=== PATIENT | male | born 1960 | race Caucasian/White ===

== ENCOUNTER 2018-08-03 17:57 | Inpatient (IN) | payer OTHER ==
[~2018-08-03] VITALS: Ht 195.6 cm; Wt 136.1 kg
--- OUTSIDE RECORDS SUMMARY | 2018-08-03 17:59 | XMS REPORT | Clinical Summary ---
Author Author [facility] Address Unknown Phone Unavailable Care Team Providers Care Irish Moss Bleacher Name Role Phone Kate Spencer MD PCP Allergies Comments Active Allergy Reactions Severity Noted Date Diaphoresis, insomnia, jittery Hydrocodone-Acetaminophen Anxiety Low 07/14/2015 Morphine Sulfate GI 07/14/2015 Intolerance Medications End Date Status Medication Sig Dispensed Refills Start Date Active pantoprazole (PROTONIX) TK 1 T PO D 3 40 MG EC tablet WITH JEN- in 7 the morning Active PREVIDENT 5000 BOOSTER Apply 0 PLUS 1.1 % paste topically 3 7 (three) times a day. Active apixaban (ELIQUIS) 5 mg Take 5 mg by 0 tablet mouth. 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 Last Filed Vital Signs Not on file Plan of Treatment Health Maintenance Due Date Last Done Comments COLON CANCER SCREENING 2011 SHINGLES VACCINES (#1) 2011 INFLUENZA VACCINE 01/03/2018 Results Not on fileafter 08/02/2017 Insurance Payer Benefit Subscriber ID Type Phone Address Plan / Group [facility] UMR xxxxxxxx [facility] [employer] Guarantor Name Account Relation to Date of Phone Billing Address Type Patient Ruiz Hernandez Personal/F Self 1960 [address] (Home) [address] [place] [address] Advance Directives Patient has advance care planning documents on file. For more information, paola perry contact: Viral Prince [address] [place] [address]
--- OUTSIDE RECORDS SUMMARY | 2018-08-03 17:59 | XMS REPORT | Continuity of Care Document ---
Author Author [facility] Address Unknown Phone Unavailable Problems Problem Status Onset Date Classification Date Reported Comments Source Hammertoe of left foot Active Problem 09/30/2017 [facility] Medications Medication Details Route Status Patient Instructions Ordering Provider Order Date Source Allergies, Adverse Reactions, Alerts Substance Category Reaction Severity Reaction type Status Date Reported Comments Source Immunizations Immunization Date Given Site Status Last Updated Comments Source Results Order Name Results Value Reference Range Date Interpretation Comments Source Vital Signs Vital Sign Value Date Comments Source Encounters Location Location Details Encounter Type Encounter Number Reason For Visit Attending Provider ADM Date DC Date Status Source Procedures Procedure Code Date Perfomer Comments Source
--- OUTSIDE RECORDS SUMMARY | 2018-08-03 17:59 | XMS REPORT ---
Author [facility] eClinicalWorks Address Unknown Phone Unavailable Care Team Providers Care Recreational Therapy Aide Name Role Phone Sincere Corrales CP Unavailable Allergies No Known Allergies Problems Problem Type Condition Code Onset Dates Condition Status Problem Hammertoe of left foot M20.42 Active Medications No Known Medications Results No Known Results Summary Purpose eClinicalWorks Submission
[2018-08-03] MEDS ORDERED: SODIUM CHLORIDE 0.9% 1000ML 1,000 ML IV STA (18:43)
[2018-08-03] MEDS ORDERED: ONDANSETRON HCL INJ 2MG/ML 2ML 2 MG/ML VIAL IV ONE (19:00)
[2018-08-03] MEDS ORDERED: FAMOTIDINE 20 MG/2 ML VIAL IV ONE (19:00)
--- NOTE | 2018-08-03 19:26 | Diagnostic Imaging Report ---
EXAMINATION: CHEST SINGLE (PORTABLE) INDICATION: ^ERMD ORDER ^Y COMPARISON: None FINDINGS: AP view TUBES and LINES: None. LUNGS: Low lung volumes. Lungs are clear. There is no evidence of pneumonia or pulmonary edema. PLEURA: No pleural effusion or pneumothorax. HEART AND MEDIASTINUM: The cardiomediastinal silhouette is unremarkable.. BONES AND SOFT TISSUES: No acute osseous lesion. Soft tissues are unremarkable. UPPER ABDOMEN: No free air under the diaphragm. IMPRESSION: No acute thoracic abnormality. Signed by: Dr. Jacqui Roque M.D. on 08/03/2018 7:23 PM
[2018-08-03 19:38] LABS: CLARITY,URINE SL CLOUDY (CLEAR); COLOR,URINE YELLOW (YELLOW); LEUKOCYTE ESTERASE ,URINE NEGATIVE (NEGATIVE); NITRITE,URINE NEGATIVE (NEGATIVE); PROTEIN,URINE DIPSTICK NEGATIVE (NEGATIVE)
[2018-08-03 19:39] LABS: BILIRUBIN,URINE 1+ (NEGATIVE); KETONES,URINE NEGATIVE (NEGATIVE); URINE UROBILINOGEN 1 mg/dL (0.2 - 1)
[2018-08-03 19:59] LABS: BACTERIA,URINE MODERATE /HPF; EPITHELIAL CELLS,URINE RARE /LPF
[2018-08-03 20:00] LABS: MUCUS,URINE MANY (RARE)
[2018-08-03 20:27] LABS: BASOPHILS % 0.4 % (0.0-1.0); EOSINOPHILS % 0.3 % (0.0-6.0); HEMATOCRIT 43.9 % (38.2-49.6); HEMOGLOBIN 14.9 g/dL (14.0-18.0); LYMPHOCYTES # (AUTO) 0.7 (1.0-3.2); LYMPHOCYTES % 6.2 % (18.0-39.1); MEAN CORPUSCULAR HGB CONC 33.9 g/dL (31-35); MEAN CORPUSCULAR VOLUME 88.5 fL (81-99); MONOCYTES # (AUTO) 0.7 (0.2-0.8); MONOCYTES % 6.2 % (4.4-11.3); NEUTROPHILS # (AUTO) 9.2 (2.1-6.9); NEUTROPHILS % 86.2 % (38.7-80.0); PLATELET COUNT 204 x10e3/uL (140-360); RED BLOOD COUNT 4.96 x10e6/uL (4.3-5.7); RED CELL DISTRIBUTION WIDTH 12.5 % (11.7-14.4)
[2018-08-03 20:35] LABS: INR 0.96; PROTHROMBIN TIME 13.3 seconds (11.9-14.5)
[2018-08-03 20:36] LABS: PARTIAL THROMBOPLASTIN TIME 29.2 seconds (23.8-35.5)
[2018-08-03 20:44] LABS: ALANINE AMINOTRANSFERASE 110 IU/L (0-55); ALBUMIN 3.9 g/dL (3.5-5.0); ALBUMIN/GLOBULIN RATIO 1.3 (0.8-2.0); ALKALINE PHOSPHATASE 53 IU/L (40-150); AMYLASE 1789 U/L (25-125); ANION GAP 11.9 mmol/L (8-16); BLOOD UREA NITROGEN 18 mg/dL (7-26); BUN/CREATININE RATIO 18 (6-25); CALCIUM 9.8 mg/dL (8.4-10.2); CARBON DIOXIDE 26 mmol/L (22-29); CHLORIDE 105 mmol/L (98-107); CREATINE KINASE 72 IU/L (30-200); CREATININE, SERUM 0.98 mg/dL (0.72-1.25); EST GLOMERULAR FILTRATION RATE > 60 ML/MIN (60-); GLUCOSE 138 mg/dL (74-118); POTASSIUM 3.9 mmol/L (3.5-5.1); SODIUM 139 mmol/L (136-145)
[2018-08-03 21:18] LABS: LIPASE 7355 U/L (8-78)
--- NOTE | 2018-08-03 22:22 | Diagnostic Imaging Report ---
CT Abdomen And Pelvis with Intravenous Contrast INDICATION: Abdominal pain, vomiting, diarrhea ^upper abd pain constant ^[id number] ^2109 TECHNIQUE: Thin collimation axial images obtained from the diaphragm to the level of the pubic symphysis following the uneventful administration of 100 cc of low osmolar, nonionic intravenous contrast. Dose reduction techniques used: Automated exposure control, adjustment of the mAs and/or kVp according to patient size, standardized low-dose protocol, and/or iterative reconstruction technique. RADIATION DOSE: Total DLP: 980.99 mGy*cm Estimated effective dose: (DLP x 0.015 x size factor) mSv CTDIvol has been reviewed. It is below the limits set by the Radiation Protocol Committee (RPC). COMPARISON: None. ABDOMEN FINDINGS: Lung Bases: Trace atelectasis in the posterior costophrenic angles. Visualized portion of the mediastinum is normal. Liver: Normal attenuation. No evidence for mass. Gallbladder: Present and is distended with a fold in the fundus. There is a small amount of dependently layering sludge. No gallbladder wall thickening. No biliary ductal dilatation. Pancreas: Mild fatty atrophy. No mass or ductal dilatation. Spleen: Normal in size. No evidence of mass.. Adrenal Glands: No evidence for mass. Kidneys: Right: Normal enhancement. No soft tissue mass. No hydronephrosis. Left: Normal enhancement. No soft tissue mass. No hydronephrosis. Lymph Nodes: No enlarged abdominal or retroperitoneal lymph nodes. Aorta: Normal in diameter PELVIS FINDINGS: Bowel: Stomach: Normal in caliber with normal wall thickness. Small Bowel: Normal in caliber with normal wall thickness. Large Bowel: Normal in caliber with normal wall thickness. Appendix: Normal appendix. Bladder: Mildly underdistended but otherwise normal. Peritoneum/retroperitoneum: No free fluid or fluid collection. Bones: Mild degenerative changes of the spine. No listhesis or compression deformities. Bone island in the right humeral head measures 7 mm. Sclerotic, well-defined lesion in the left ilium measures 15 mm with narrow zone of transition. Soft tissues: Fat-containing right inguinal hernia. IMPRESSION: 1. No evidence for bowel obstruction or inflammation. Normal appendix. 2. Distended gallbladder without biliary obstruction or CT findings of acute cholecystitis. Trace amount of dependently layering sludge/small stones. Signed by: Dr. Red Marinelli MD on 08/03/2018 10:19 PM
--- NOTE | 2018-08-03 22:24 | Diagnostic Imaging Report ---
HISTORY: Abdominal pain TECHNIQUE: Selected images from limited abdominal ultrasound provided for INTERPRETATION: COMPARISON: CT 2146 hours. FINDINGS: Pancreas: Diffusely increased in echotexture without mass or ductal dilatation in the visualized portions.. Liver: Measures 17.0 cm in sagittal plane. The echotexture is normal. No mass in the visualized portions. Portal Vein: Measures 1.1 cm. Proper directional flow on spectral Doppler interrogation. Biliary Tree: Normal Gallbladder: Distended with a fold in the gallbladder fundus. Calculus in the neck measures 10 mm and is nonmobile. No gallbladder wall thickening or pericholecystic fluid. Sonographic Ku sign is negative. CBD: 0.7 cm. Right Kidney: 12.4 cm in greatest length. The echotexture is normal. There is no evidence for mass. There is no collecting system dilatation or evidence of obstruction. No renal calculi evident. No adjacent free fluid or fluid collections. Visualized IVC and aorta are normal. There is no free fluid. IMPRESSION: Subcentimeter impacted gallstone in the gallbladder neck with gallbladder distention. No sonographic evidence of acute cholecystitis. Normal biliary tree. Pancreas lipomatosis. Signed by: Dr. Red Marinelli MD on 08/03/2018 10:21 PM
[2018-08-03] MEDS ORDERED: HYDROMORPHONE 2MG/ML 2 MG/ML ML IV PRN (22:45)
[2018-08-03] MEDS ORDERED: METRONIDAZOLE 500MG/NS 100ML IV SCH (22:45)
[2018-08-03] MEDS ORDERED: ONDANSETRON HCL INJ 2MG/ML 2ML 2 MG/ML VIAL IV PRN (22:45)
[2018-08-03] MEDS ORDERED: ELIQUIS PO (22:55)
[2018-08-03] MEDS ORDERED: PANTOPRAZOLE SO40 MG PO (22:55)
[2018-08-03] MEDS ORDERED: PREVIDENT100 ML (22:55)
--- OUTSIDE RECORDS SUMMARY | 2018-08-03 23:04 | XMS REPORT ---
Author Author [facility] Address Unknown Phone Unavailable Care Team Providers Care Radioisotope Production Operator Name Role Phone Ti OIVEDO Unavailable Unavailable Problems This patient has no known problems. Allergies, Adverse Reactions, Alerts This patient has no known allergies or adverse reactions. Medications This patient has no known medications. Results Test Description Test Time Test Comments Text Results Atomic Results Result Comments US GALLBLADDER 2018-08-03 22:19:00 [facility] [address] [place] [address] Patient Name: CALVIN HARRIS MR #: [id number] : 1960 Age/Sex: 58/M Req #: [id number] Adm Physician: Ordered by: YARELI SOLO NP Report #: [id number] Location: ER Room/Bed: Procedure: [id number] US/US GALLBLADDER Exam Date: 08/03/18 Exam Time: 2134 REPORT STATUS: Signed HISTORY: Abdominal pain TECHNIQUE: Selected images from limited abdominal ultrasound provided for INTERPRETATION: COMPARISON: CT 2145 hours. FINDINGS: Pancreas: Diffusely increased in echotexture without mass or ductal dilatation in the visualized portions.. Liver: Measures 17.0 cm in sagittal plane. The echotexture is normal. No mass in the visualized portions. Portal Vein: Measures 1.1 cm. Proper directional flow on spectral Doppler interrogation. Biliary Tree: Normal Gallbladder: Distended with a fold in the gallbladder fundus. Calculus in the neck measures 10 mm and is nonmobile. No gallbladder wall thickening or pericholecystic fluid. Sonographic Ku sign is negative. CBD: 0.7 cm. Right Kidney: 12.4 cm in greatest length. The echotexture is normal. There is no evidence for mass. There is no collecting system dilatation or evidence of obstruction. No renal calculi evident. No adjacent free fluid or fluid collections. Visualized IVC and aorta are normal. There is no free fluid. IMPRESSION: Subcentimeter impacted gallstone in the gallbladder neck with gallbladder distention. No sonographic evidence of acute cholecystitis. Normal biliary tree. Pancreas lipomatosis. Signed by: Dr. Sanjay Marinelli MD on 08/03/2018 10:21 PM Dictated By: SANJAY MARINELLI MD 20 Transcribed By: MAX on 08/03/182220 COPY TO: YARELI SOLO NP CT ABDOMEN/PELVIS W 2018-08-03 22:14:00 [place] [address] Patient Name: CALVIN HARRIS MR #: [id number] : 1960 Age/Sex: 58/M Req #: [id number] Adm Physician: Ordered by: YARELI SOLO NP Report #: [id number] Location: ER Room/Bed: Procedure: [id number] CT/CT ABDOMEN/PELVIS W Exam Date: 08/03/18 Exam Time: 2109 REPORT STATUS: Signed CT Abdomen And Pelvis with Intravenous Contrast INDICATION: Abdominal pain, vomiting, diarrhea upper abd pain constant [id number] TECHNIQUE: Thin collimation axial images obtained from the diaphragm to the level of the pubic symphysis following the uneventful administration of 100 cc of low osmolar, nonionic intravenous contrast. Dose reduction techniques used: Automated exposure control, adjustment of the mAs and/or kVp according to patient size, standardized low-dose protocol, and/or iterative reconstruction technique. RADIATION DOSE: Total DLP: 980.99 mGy*cm Estimated effective dose: (DLP x 0.015 x size factor) mSv CTDIvol has been reviewed. It is below the limits set by the Radiation Protocol Committee (RPC). COMPARISON: None. ABDOMEN FINDINGS: Lung Bases: Trace atelectasis in the posterior costophrenic angles. Visualized portion of the mediastinum is normal. Liver: Normal attenuation. No evidence for mass. Gallbladder: Present and is distended with a fold in the fundus. There is a small amount of dependently layering sludge. No gallbladder wall thickening. No biliary ductal dilatation. Pancreas: Mild fatty atrophy. No mass or ductal dilatation. Spleen: Normal in size. No evidence of mass.. Adrenal Glands: No evidence for mass. Kidneys: Right: Normal enhancement. No soft tissue mass. No hydronephrosis. Left: Normal enhancement. No soft tissue mass. No hydronephrosis. Lymph Nodes: No enlarged abdominal or retroperitoneal lymph nodes. Aorta: Normal in diameter PELVIS FINDINGS: Bowel: Stomach: Normal in caliber with normal wall thickness. Small Bowel: Normal in caliber with normal wall thickness. Large Bowel: Normal in caliber with normal wall thickness. Appendix: Normal appendix. Bladder: Mildly underdistended but otherwise normal. Peritoneum/retroperitoneum: No free fluid or fluid collection. Bones: Mild degenerative changes of the spine. No listhesis or compression deformities. Bone island in the right humeral head measures 7 mm. Sclerotic, well-defined lesion in the left ilium measures 15 mm with narrow zone of transition. Soft tissues: Fat-containing right inguinal hernia. IMPRESSION: 1. No evidence for bowel obstruction or inflammation. Normal appendix. 2. Distended gallbladder without biliary obstruction or CT findings of acute cholecystitis. Trace amount of dependently layering sludge/small stones. Signed by: Dr. Sanjay Marinelli MD on 08/03/2018 10:19 PM Dictated By: SANJAY MARINELLI MD 18 Transcribed By: MAX on 08/03/182218 COPY TO: YARELI SOLO NP CHEST SINGLE (PORTABLE) 2018-08-03 19:21:00 [place] [address] Patient Name: CALVIN HARRIS MR #: [id number] : 1960 Age/Sex: 58/M Req #: [id number] Adm Physician: Ordered by: YARELI SOLO NP Report #: [id number] Location: ER Room/Bed: Procedure: [id number] DX/CHEST SINGLE (PORTABLE) Exam Date: 08/03/18 Exam Time: 1905 REPORT STATUS: Signed EXAMINATION: CHEST SINGLE (PORTABLE) INDICATION: ERMD ORDER Y COMPARISON: None FINDINGS: AP view TUBES and LINES: None. LUNGS: Low lung volumes. Lungs are clear. There is no evidence of pneumonia or pulmonary edema. PLEURA: No pleural effusion or pneumothorax. HEART AND MEDIASTINUM: The cardiomediastinal silhouette is unremarkable.. BONES AND SOFT TISSUES: No acute osseous lesion. Soft tissues are unremarkable. UPPER ABDOMEN: No free air under the diaphragm. IMPRESSION: No acute thoracic abnormality. Signed by: Dr. Andie Delatorre M.D. on 08/03/2018 7:23 PM Dictated By: ANDIE DELATORRE MD 22 Transcribed By: MAX on 08/03/181922 COPY TO: YARELI SOLO NP
--- OUTSIDE RECORDS SUMMARY | 2018-08-03 23:04 | XMS REPORT | Clinical Summary ---
Author Author [facility] Address Unknown Phone Unavailable Care Team Providers Care Home Care Giver Name Role Phone Kate Spencer MD PCP [...] ID Type Phone Address Plan / Group [facility] UMR xxxxxxxx PPO [facility] [employer] Guarantor Name Account Relation to Date of Phone Billing Address Type Patient Ruiz Hernandez Personal/F Self 1960 [address] ([address]) [address] [place] [address] Advance Directives Patient has advance care planning documents on file. For more information, paola perry contact: Viral Prince [address] [place] [address]
[2018-08-04] VITALS (9 sets, daily range): BP systolic 100–131; BP diastolic 57–72
--- NOTE | 2018-08-04 02:14 | NUR ---
Report received from EMERGENCY DETAIL DRIVERSOFIA Ying. Patient admitted in unit at 0034 by wheelchair. Patient received alert/roientedx3. Patient complained pain on his upper abdominal area.Medicated as order for pain. patient's friend in the room. Head to toe assessment completed. No skin breakdown noted. Patient instructed to call for as needed. Bed in lower position,locked. Call glynn within reach. Will continue to monitor.
[2018-08-04] MEDS ORDERED: IOPAMIDOL 370 MG/ML 200 ML INFUS..BTL INJ ONE (04:37)
[2018-08-04] MEDS ORDERED: SODIUM CHLORIDE 0.9% 50ML 50 ML ONE (04:37)
[2018-08-04] MEDS: SODIUM CHLORIDE 0.9% 1000ML 1,000 ML IV SCH ×4 (05:23→18:43)
[2018-08-04] MEDS: METRONIDAZOLE 500MG/NS 100ML IV SCH ×3 (05:42→18:28)
[2018-08-04] MEDS: CEFOXITIN 1GM/ NS 50ML ML IV SCH ×4 (05:42→22:00)
--- NOTE | 2018-08-04 07:00 | NUR ---
Report given to oncoming nurse,walking round done.
--- NOTE | 2018-08-04 07:00 | NUR ---
Report given to oncoming nurse,walking round done.
--- NOTE | 2018-08-04 07:30 | NUR ---
PT UP IN BED AWAKE DENIES PAIN,IV FLUIDS INFUSING
--- NOTE | 2018-08-04 07:45 | NUR ---
DR PAREDES HERE
[2018-08-04 07:50] LABS: BASOPHILS % 0.5 % (0.0-1.0); EOSINOPHILS # (AUTO) 0.1 (0.0-0.4); EOSINOPHILS % 2.4 % (0.0-6.0); HEMOGLOBIN 13.5 g/dL (14.0-18.0); LYMPHOCYTES # (AUTO) 0.9 (1.0-3.2); LYMPHOCYTES % 14.7 % (18.0-39.1); MEAN CORPUSCULAR HEMOGLOBIN 29.9 pg (28-32); MEAN CORPUSCULAR HGB CONC 33.8 g/dL (31-35); MEAN CORPUSCULAR VOLUME 88.5 fL (81-99); MONOCYTES # (AUTO) 0.5 (0.2-0.8); MONOCYTES % 7.8 % (4.4-11.3); NEUTROPHILS # (AUTO) 4.4 (2.1-6.9); NEUTROPHILS % 74.3 % (38.7-80.0); PLATELET COUNT 151 x10e3/uL (140-360); RED BLOOD COUNT 4.52 x10e6/uL (4.3-5.7); RED CELL DISTRIBUTION WIDTH 12.5 % (11.7-14.4)
[2018-08-04 08:17] LABS: ALANINE AMINOTRANSFERASE 101 IU/L (0-55); ALBUMIN 3.3 g/dL (3.5-5.0); ALBUMIN/GLOBULIN RATIO 1.4 (0.8-2.0); ALKALINE PHOSPHATASE 53 IU/L (40-150); AMYLASE 319 U/L (25-125); ANION GAP 9.5 mmol/L (8-16); BLOOD UREA NITROGEN 15 mg/dL (7-26); BUN/CREATININE RATIO 18 (6-25); CALCIUM 8.7 mg/dL (8.4-10.2); CARBON DIOXIDE 24 mmol/L (22-29); CHLORIDE 110 mmol/L (98-107); CREATININE, SERUM 0.83 mg/dL (0.72-1.25); EST GLOMERULAR FILTRATION RATE > 60 ML/MIN (60-); GLUCOSE 104 mg/dL (74-118); LIPASE 443 U/L (8-78); POTASSIUM 3.5 mmol/L (3.5-5.1); SODIUM 140 mmol/L (136-145)
--- NOTE | 2018-08-04 08:45 | NUR ---
DR WELDON HERE
[2018-08-04] MEDS: PANTOPRAZOLE 40 MG 10ML VIAL IV SCH ×2 (08:52→16:41)
[2018-08-04 10:31] LABS: CHOL/HDL RATIO 3.4 (3.9-4.7)
--- NOTE | 2018-08-04 12:33 | Consultation ---
DATE OF CONSULTATION: 08/04/2018 HISTORY OF PRESENT ILLNESS: The patient is a 58-year-old male presents with complaints of epigastric abdominal pain. Pain started yesterday, was very severe, has associated nausea, vomiting, and some diarrhea. The patient states the pain is much less now, but never gone completely. He has not had similar pains in the past. He came to the emergency room and evaluation revealed gallstones as well as elevated amylase and lipase suggested pancreatitis. There are no symptoms of jaundice. 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 He also has a history of gastroesophageal reflux disease. ALLERGIES: HE HAS ALLERGIES TO HYDROCODONE AND MORPHINE. FAMILY HISTORY: Noncontributory. SOCIAL HISTORY: The patient does not smoke cigarettes or drink alcohol. REVIEW OF SYSTEMS: He has had no fever or weight loss, otherwise as stated above. PHYSICAL EXAMINATION: GENERAL: The patient is awake and alert, in no distress. VITAL SIGNS: Normal. He is not tachycardic. HEENT: Reveals no scleral icterus. NECK: No masses. LUNGS: Equal breath sounds. Clear bilaterally. CARDIAC: Regular rate and rhythm with no murmur. ABDOMEN: Soft. There is mild epigastric tenderness. There is no mass. There is no organomegaly. There are no signs of peritonitis. EXTREMITIES: Have no edema. Peripheral pulses are palpable. NEUROLOGIC: Intact. LABORATORY DATA: CBC essentially normal. Chemistry revealed lipase over 7300 on admission, which is now down to 440. Bilirubin was 2.7 on admission, now is 1.6. ASSESSMENT AND PLAN: A 58-year-old male with gallstone pancreatitis, which seemed to be resolving. He is to be evaluated for MRCP. He will likely benefit from cholecystectomy, which tentatively plan to schedule for 2 days now. Procedure was explained to the patient. Thank you for asking me to see Mr. Hernandez. MD SHERRY Serrato/CAROLINA /[id number]
--- NOTE | 2018-08-04 13:17 | Diagnostic Imaging Report ---
EXAM: Magnetic Resonance Cholangiopancreatography (M.R.C.P.) INDICATION: ^IMPACTED GALLSTONES, PANCREATITIS COMPARISON: CT abdomen and pelvis 08/03/2018. Gallbladder ultrasound 08/03/2018. TECHNIQUE: Multiplanar, multisequence MRCP was performed, with sequences including coronal turbo spin-echo T1-weighted scans, [facility] MRCP scans, coronal spin, coronal MPR 2, SMRCP 3D HR, [facility] MRCP TRUJILLO. 3D MIP thin and thick slab MRCP sequences were performed at the workstation console by the technologist. IV Contrast: None Oral Contrast: None Medications: None COMPLICATIONS: None FINDINGS: LOWER THORAX: Unremarkable. HEPATOBILIARY: No focal hepatic lesions. No biliary ductal dilation. Common bile duct measures 0.4 cm. No choledocholithiasis. GALLBLADDER: Multiple small stones. No definite impacted stones identified at the gallbladder neck. Gallbladder fold. Gallbladder measures 8.1 cm in length. No wall thickening. Trace pericholecystic fluid. SPLEEN: Mild splenomegaly measuring 15.2 cm in craniocaudad dimension. PANCREAS: No focal masses or ductal dilatation. ADRENALS: No adrenal nodules KIDNEYS/URETERS: No hydronephrosis. No cystic or solid mass lesions. No stones. GI TRACT: No abnormal distention, wall thickening, or evidence of bowel obstruction. Appendix is not visualized. LYMPH NODES: No lymphadenopathy. VESSELS: Unremarkable. PERITONEUM / RETROPERITONEUM: No free air or fluid. BONES: Unremarkable. SOFT TISSUES: Unremarkable. IMPRESSION: 1. Multiple small gallstones. No evidence of an impacted stone. There is however pericholecystic fluid, which raises concern for acute cholecystitis. 2. Normal common bile duct. No choledocholithiasis. 3. Pancreas is grossly unremarkable. Signed by: Dr. Camacho Hart M.D. on 08/04/2018 1:14 PM
[2018-08-04] MEDS ORDERED: ACETAMINOPHEN 325 MG TAB PO PRN (19:15)
[2018-08-05] MEDS: METRONIDAZOLE 500MG/NS 100ML IV SCH ×3 (00:10→12:00)
[2018-08-05 00:30] VITALS: BP 112/71
--- NOTE | 2018-08-05 01:55 | Consultation ---
DATE OF CONSULTATION: 08/04/2018 GI Consultation. REASON FOR CONSULTATION: Gallstone pancreatitis. HISTORY OF PRESENTING ILLNESS: A 58-year-old white male, has history of recurrent DVT on eliquis who got admitted through the emergency room with acute onset of midepigastric right upper quadrant pain. He was found to have gallstone pancreatitis. Lipase was elevated. Liver enzymes were abnormal. He was admitted on the floor. He is currently being treated with IV fluid, n.p.o. GI has been consulted to assist in the management of gallstone pancreatitis. The patient has been seen by Surgical Service. REVIEW OF SYSTEMS: Twelve-point system reviewed. Symptomatology is limited as per HPI. PAST MEDICAL HISTORY: Previous head and neck cancer, which was treated with radiation. PAST SURGICAL HISTORY: G-tube placement. FAMILY HISTORY: Noncontributory. SOCIAL HISTORY: No smoking, alcohol or any illicit drug use. ALLERGIES: HYDROCODONE AND MORPHINE. HOME MEDICATIONS: Pantoprazole and Eliquis. INPATIENT MEDICATIONS: Reviewed, the patient is not any Eliquis in the hospital. PHYSICAL EXAMINATION: VITAL SIGNS: Temperature 97.7, pulse 88, respirations 18, blood pressure 100/72, and oxygen saturation 96% on room air. GENERAL: Not in any acute distress. HEENT: Oral mucosa is moist. Anicteric sclerae. CVS: S1 and S2 regular. LUNGS: Bilaterally grossly clear. ABDOMEN: Soft. Mild epigastric and right upper quadrant tenderness on deep palpation without rebound, rigidity or guarding. Positive bowel sound. EXTREMITIES: Warm. No leg edema. LABORATORY DATA: Sodium 140, potassium 3.5, chloride 110, bicarb 24, BUN 15, creatinine 0.83. Liver enzymes showed total bilirubin down to 1.6 from 2.7. AST down to 65 from 138. ALT down to 101 from 110. Alkaline phosphatase 53 from 53. Amylase has come down to 319 from 1789, lipase has come down to 443 from 7355. Ultra MRCP showed multiple gallstones. Normal common bile duct. No choledocholithiasis. Pancreas grossly unremarkable. CT of the abdomen and pelvis on 08/03/2018, showed no evidence of bowel obstruction or inflammation. Distended gallbladder without biliary obstruction on CT exam. Place him on dependently layering sludge or small stones. No free fluids. Ultrasound of the right upper quadrant showed a subcentimeter impacted gallstone, the gallbladder neck with gallbladder distention. No sonographic evidence of acute cholecystitis. Normal biliary tree. Pancreas lipomatosis. IMPRESSION: Gallstone pancreatitis. Negative for choledocholithiasis. Positive for gallstones. PLAN: Since the patient is now hungry, therefore this is a best sign of recovery from pancreatitis. I am going to allow him clear liquid and advance as tolerated. Cholecystectomy on Monday. I thank Dr. Coulter for allowing me to participate in the care of this patient. Aniket Khan MD SA/CAROLINA /[id number] CHUY[place]
[2018-08-05 05:37] VITALS: BP 117/58
[2018-08-05] MEDS: CEFOXITIN 1GM/ NS 50ML ML IV SCH (06:02)
[2018-08-05 06:49] LABS: ALANINE AMINOTRANSFERASE 70 IU/L (0-55); ALBUMIN 3.3 g/dL (3.5-5.0); ALBUMIN/GLOBULIN RATIO 1.3 (0.8-2.0); ALKALINE PHOSPHATASE 49 IU/L (40-150); ANION GAP 10.5 mmol/L (8-16); BLOOD UREA NITROGEN 19 mg/dL (7-26); BUN/CREATININE RATIO 24 (6-25); CALCIUM 8.9 mg/dL (8.4-10.2); CARBON DIOXIDE 23 mmol/L (22-29); CHLORIDE 107 mmol/L (98-107); CREATININE, SERUM 0.79 mg/dL (0.72-1.25); EST GLOMERULAR FILTRATION RATE > 60 ML/MIN (60-); GLUCOSE 107 mg/dL (74-118); LIPASE 99 U/L (8-78); POTASSIUM 3.5 mmol/L (3.5-5.1); SODIUM 137 mmol/L (136-145)
--- NOTE | 2018-08-05 06:50 | NUR ---
Report given to oncoming nurse
--- NOTE | 2018-08-05 07:15 | NUR ---
DR CARVALHO HERE SPOKE WITH PATIENT REGARDING SURGERY.PT UP IN BED DENIES ;AIN.
[2018-08-05 07:37] VITALS: BP 119/80
--- NOTE | 2018-08-05 09:00 | NUR ---
DR WELDON HERE
[2018-08-05 09:37] VITALS: BP 119/80
[2018-08-05] MEDS: PANTOPRAZOLE 40 MG 10ML VIAL IV SCH (09:44)
--- NOTE | 2018-08-05 10:00 | NUR ---
pt wants to wait to sign consent for gallbladder surgery must speak with first.
[2018-08-05 12:21] VITALS: BP 113/71
--- NOTE | 2018-08-05 15:00 | NUR ---
PT DECIDED NOT TO HAVE SURGERY AT THIS TIME WILL FOLLOW UP WITH DR CARVALHO LATER
--- NOTE | 2018-08-05 16:00 | NUR ---
SPOKE WITH DR MAIA AGUIRRE TO DCD PT
--- NOTE | 2018-08-05 16:15 | NUR ---
PT DISCHARGED HOME,IV DCD WITOUT REDNESS OR SWELLING,,INSTRUCTIONS GIVEN TO PT.TRANSPORTED TO AUTO VIA W/C
--- NOTE | 2018-08-07 01:37 | Discharge Summary ---
DISCHARGE DIAGNOSIS: Gallstone pancreatitis. HISTORY OF PRESENT ILLNESS AND HOSPITAL COURSE: The patient is a 58-year-old gentleman, who experienced acute onset of abdominal pain, where he presented to the Emergency Room, where he was noticed to have increased LFTs as well as pancreatitis, which was felt to be secondary to a gallstone. He had an MRCP done and it did not show any blockage, but did show evidence of continued gallstones. The patient had no further pain during his hospitalization, so he obviously passed the stone that caused the pancreatitis and at the time of discharge, his liver function tests were essentially almost normal. His lipase and amylase were also back to near normal and he was able to ambulate and eat food regularly without any issues. He was seen by both GI and Surgery where we originally planned for a cholecystectomy, but the patient unfortunately said since he was pain free, at that time eating well, and he had things to attend to at home, he decided that he did not want to pursue the surgical route at this moment and he will consider it as an outpatient. Since the patient was confident, he was pain free, hemodynamically stable, and laboratory data near normal, the patient was allowed to go home. I did tell him that there is no way for us to predict the future that if he is to have another pancreatitis attack, it could be more severe, it could be more dangerous, it could be potentially fatal, it could be the cause of diabetes, and chronic abdominal pain. The patient is fully aware of these known situations and still wishes to go home and consider it as an outpatient. Please see hospital chart for full details. MD EDMUDN Strong/[place] /[id number]
== END 2018-08-05 15:56 | disposition home or self-care (01) | DRG 444 ==
LOC: ER 17:57 → ERHOLD 22:58 → MED/SURG3 08-04 00:36
PROVIDERS: ADMIT Internal Medicine; ATTEND Internal Medicine
DX: K80.80 Other cholelithiasis without obstruction (principal); K85.10 Biliary acute pancreatitis without necrosis or infection; Z86.718 Personal history of other venous thrombosis and embolism; Z79.01 Long term (current) use of anticoagulants; K21.9 Gastro-esophageal reflux disease without esophagitis
CPT/HCPCS: 36415; 71045; 74177; 74181; 76705; 80053; 80061; 81001; 82150; 82550; 82553; 83690; 84484; 85025; 85610; 85730; 93005; 99284; J2405; J7030; Q9967

== ENCOUNTER 2020-10-06 03:11 | Emergency (ER) | payer OTHER ==
[~2020-10-06] VITALS: Ht 195.6 cm; Wt 136.1 kg
[~2020-10-06 03:11] MED LIST: ELIQUIS PO; PANTOPRAZOLE SO40 MG PO; PREVIDENT100 ML
== END 2020-10-06 07:51 | disposition other institution (70) ==
LOC: ER 04:20
DX: S01.25XA Open bite of nose, initial encounter (principal); W54.0XXA Bitten by dog, initial encounter; Y92.008 Other place in unspecified non-institutional (private) residence as the place of occurrence of the external cause; Z85.818 Personal history of malignant neoplasm of other sites of lip, oral cavity, and pharynx; Z86.718 Personal history of other venous thrombosis and embolism
CPT/HCPCS: 70450; 70486; 99284

== ENCOUNTER → 2024-03-08 | Day surgery (SDC) | payer OTHER ==
[2024-03-07 16:11] LABS: BASOPHILS % 0.7 % (0.0-1.0); EOSINOPHILS # (AUTO) 0.1 (0.0-0.4); HEMATOCRIT 42.9 % (38.2-49.6); LYMPHOCYTES # (AUTO) 1.3 (1.0-3.2); LYMPHOCYTES % 22.7 % (18.0-39.1); MEAN CORPUSCULAR HEMOGLOBIN 30.2 pg (28-32); MEAN CORPUSCULAR HGB CONC 32.6 g/dL (31-35); MEAN CORPUSCULAR VOLUME 92.5 fL (81-99); MONOCYTES # (AUTO) 0.4 (0.2-0.8); MONOCYTES % 7.8 % (4.4-11.3); NEUTROPHILS # (AUTO) 3.7 (2.1-6.9); NEUTROPHILS % 66.6 % (38.7-80.0); PLATELET COUNT 198 x10e3/uL (140-360); RED BLOOD COUNT 4.64 x10e6/uL (4.3-5.7); RED CELL DISTRIBUTION WIDTH 12.8 % (11.7-14.4)
[2024-03-07 16:30] LABS: ANION GAP 14.1 mmol/L (8-16); CALCIUM 9.5 mg/dL (8.4-10.2); CREATININE, SERUM 0.97 mg/dL (0.72-1.25); POTASSIUM 4.1 mmol/L (3.5-5.1)
[~2024-03-08] MED LIST changes: +ACETAMINOPHEN 1000 MG/100 ML IV ONE; +BUPIVACAINE HCL 0.5% INJ 30 ML VIAL INJ ONE; +DEXAMETHASONE SOD PHOS INJ 4 MG/ML SDV ONE; +DEXMEDETOMIDINE HCL 200 MCG/2 ML VIAL ONE; +KETOROLAC TROMETHAMINE 30 MG/ML VIAL ONE; +LIDOCAINE HCL 2% LOCAL INJ 5 ML SDV VIAL INJ ONE; +METOCLOPRAMIDE HCL 10 MG/2ML VIAL ONE; +NEOSTIGMINE 1 MG/ML 10ML VIAL ONE; +ONDANSETRON HCL INJ 2MG/ML 2ML 2 MG/ML VIAL ONE; +PROPOFOL IV EMULSION 10 MG/ML 20 ML VIAL ONE; +SEVOFLURANE INHAL SOLN 250 ML PEN BTL ONE
[2024-03-08] MEDS: CEFAZOLIN SODIUM 2 GM ONE (07:33)
[2024-03-08] MEDS: LACTATED RINGER'S 1,000 ML ONE (07:33)
[2024-03-08] MEDS: TRAMADOL HCL 50 MG TAB ONE (12:45)
[2024-03-08 13:05] VITALS: BP 149/90; PULSE 62; RESP 14; O2SAT 99
== END | disposition home or self-care (01) ==
LOC: OR 06:59
PROVIDERS: ATTEND Podiatrist Foot Surgery
DX: M20.42 Other hammer toe(s) (acquired), left foot (principal); G57.82 Other specified mononeuropathies of left lower limb; S93.145A Subluxation of metatarsophalangeal joint of left lesser toe(s), initial encounter; M17.10 Unilateral primary osteoarthritis, unspecified knee; D49.6 Neoplasm of unspecified behavior of brain; E66.01 Morbid (severe) obesity due to excess calories; X58.XXXA Exposure to other specified factors, initial encounter; Z88.6 Allergy status to analgesic agent; Z01.810 Encounter for preprocedural cardiovascular examination; Z01.812 Encounter for preprocedural laboratory examination; Z01.818 Encounter for other preprocedural examination; Z79.02 Long term (current) use of antithrombotics/antiplatelets; Z87.891 Personal history of nicotine dependence; Z86.718 Personal history of other venous thrombosis and embolism; Z85.819 Personal history of malignant neoplasm of unspecified site of lip, oral cavity, and pharynx; Z92.21 Personal history of antineoplastic chemotherapy
CPT/HCPCS: 28285 ×3; 36415; 64704 ×2; 64727 ×2; 71046; 80048; 85025; 93005; C1713; J0131; J0690; J1100; J1885; J2003; J2405; J2704; J2710; J2765; J7121; 76000

== ENCOUNTER 2025-02-15 16:15 | Inpatient (IN) | payer OTHER ==
[~2025-02-15] VITALS: Ht 193 cm; Wt 147.4 kg
[~2025-02-15 16:15] MED LIST changes: -ACETAMINOPHEN 1000 MG/100 ML IV ONE; -BUPIVACAINE HCL 0.5% INJ 30 ML VIAL INJ ONE; -DEXAMETHASONE SOD PHOS INJ 4 MG/ML SDV ONE; -DEXMEDETOMIDINE HCL 200 MCG/2 ML VIAL ONE; -KETOROLAC TROMETHAMINE 30 MG/ML VIAL ONE; -LIDOCAINE HCL 2% LOCAL INJ 5 ML SDV VIAL INJ ONE; -METOCLOPRAMIDE HCL 10 MG/2ML VIAL ONE; -NEOSTIGMINE 1 MG/ML 10ML VIAL ONE; -ONDANSETRON HCL INJ 2MG/ML 2ML 2 MG/ML VIAL ONE; -PROPOFOL IV EMULSION 10 MG/ML 20 ML VIAL ONE; -SEVOFLURANE INHAL SOLN 250 ML PEN BTL ONE
[2025-02-15 18:09] LABS: BASOPHILS % 0.1 % (0.0-1.0); EOSINOPHILS % 0.0 % (0.0-6.0); LYMPHOCYTES % 4.7 % (18.0-39.1); MONOCYTES % 7.8 % (4.4-11.3); NEUTROPHILS % 86.4 % (38.7-80.0); RED CELL DISTRIBUTION WIDTH 13.2 % (11.7-14.4)
[2025-02-15 18:20] LABS: EST GLOMERULAR FILTRATION RATE 65.0 ML/MIN (>=60)
[2025-02-15 18:39] LABS: INR 1.13
[2025-02-15 21:40] LABS: EPITHELIAL CELLS,URINE FEW /LPF; LEUKOCYTE ESTERASE ,URINE NEGATIVE (NEGATIVE); PROTEIN,URINE DIPSTICK >=300 (NEGATIVE); URINE UROBILINOGEN 0.2 mg/dL (0.2 - 1); WBC,URINE (MAN) >50 /HPF (0-5)
[2025-02-15] MEDS ORDERED: ONDANSETRON HCL INJ 2MG/ML 2ML 2 MG/ML VIAL IV PRN (22:30)
[2025-02-15] MEDS ORDERED: Morphine 2mg Syringe 2 MG/ML SYR IV PRN (22:30)
[2025-02-15] MEDS: SODIUM CHLORIDE 0.9% 1000ML 1,000 ML IV SCH (22:30)
[2025-02-15] MEDS: SODIUM CHLORIDE 0.9% 1000ML 1,000 ML IV ONE (22:57)
[2025-02-15] MEDS ORDERED: IOPAMIDOL 370 MG/ML 100 ML INFUS..BTL INJ ONE (23:59)
[2025-02-16] VITALS (7 sets, daily range): BP systolic 111–150; BP diastolic 74–83; PULSE 73–117; RESP 18–21; TEMP 97.4–103.2; O2SAT 98–100
[2025-02-16] MEDS ORDERED: ACETAMINOPHEN 325 MG TAB ONE (00:24)
[2025-02-16] MEDS: ACETAMINOPHEN 325 MG TAB PO ONE (00:27)
[2025-02-16 07:28] LABS: BASOPHILS % 0.2 % (0.0-1.0); EOSINOPHILS % 0.0 % (0.0-6.0); LYMPHOCYTES % 4.5 % (18.0-39.1); MONOCYTES % 8.5 % (4.4-11.3); NEUTROPHILS % 86.1 % (38.7-80.0); RED CELL DISTRIBUTION WIDTH 13.2 % (11.7-14.4)
[2025-02-16 07:47] LABS: EST GLOMERULAR FILTRATION RATE 92.0 ML/MIN (>=60)
[2025-02-16] MEDS: FUROSEMIDE INJ 10 MG/ML 2 ML VIAL IV ONE (12:38)
[2025-02-16] MEDS: ACETAMINOPHEN 325 MG TAB PO PRN (12:39)
[2025-02-16] MEDS: APIXABAN 5 MG TABLET PO SCH (18:17)
[2025-02-16 20:56] LABS: CDIFF AG QUIK CHEK NEGATIVE (NEGATIVE); CDIFF TOX QUIK CHEK NEGATIVE (NEGATIVE)
[2025-02-17] VITALS (7 sets, daily range): BP systolic 101–146; BP diastolic 66–87; PULSE 80–95; RESP 17–20; TEMP 97.7–98.7; O2SAT 97–100
[2025-02-17 17:03] LABS: BASOPHILS % 0.5 % (0.0-1.0); EOSINOPHILS % 2.5 % (0.0-6.0); LYMPHOCYTES % 9.6 % (18.0-39.1); MONOCYTES % 11.1 % (4.4-11.3); NEUTROPHILS % 75.8 % (38.7-80.0); RED CELL DISTRIBUTION WIDTH 13.3 % (11.7-14.4)
[2025-02-17 17:30] LABS: EST GLOMERULAR FILTRATION RATE 102.0 ML/MIN (>=60)
[2025-02-17] MEDS ORDERED: LOPERAMIDE HCL 2 MG CAP PO PRN (19:30)
[2025-02-17] MEDS: CEFTRIAXONE 2 GM in SODIUM CHLORIDE 0.9% 100 ML IV SCH (19:43)
[2025-02-17] MEDS: TAMSULOSIN HCL 0.4 MG CAP PO SCH (21:20)
[2025-02-17] MEDS: POTASSIUM CHLORIDE 20 MEQ TAB CR PO ONE (21:20)
[2025-02-18] VITALS (7 sets, daily range): BP systolic 114–134; BP diastolic 60–82; PULSE 83–92; RESP 17–20; TEMP 98–99.7; O2SAT 96–99
[2025-02-18] MEDS: CHOLESTYRAMINE 4 GM PACKET PO SCH (20:19)
[2025-02-19] VITALS: BP 138/85; PULSE 89; RESP 20; TEMP 98.6; O2SAT 98
[2025-02-19 06:57] LABS: BASOPHILS % 1.0 % (0.0-1.0); EOSINOPHILS % 2.7 % (0.0-6.0); LYMPHOCYTES % 18.0 % (18.0-39.1); MONOCYTES % 13.9 % (4.4-11.3); NEUTROPHILS % 64.0 % (38.7-80.0); RED CELL DISTRIBUTION WIDTH 13.2 % (11.7-14.4)
[2025-02-19 07:23] LABS: EST GLOMERULAR FILTRATION RATE 101.0 ML/MIN (>=60)
[2025-02-19 08:00] VITALS: BP 124/68; PULSE 82; RESP 20; TEMP 98.4; O2SAT 97
[2025-02-19 09:00] VITALS: BP 124/68; PULSE 82; RESP 12; TEMP 98.4; O2SAT 97
[2025-02-19 09:15] LABS: LYMPHOCYTES % (MANUAL) 22 % (19-48); MONOCYTES % (MANUAL) 5 % (3.4-9.0); NEUTROPHILS % (MANUAL) 73 % (40-74); PLATELET ESTIMATE SLIGHTLY DECREASED; PLATELET MORPHOLOGY COMMENT NORMAL; RBC MORPHOLOGY COMMENT NORMAL
[2025-02-19 12:00] VITALS: BP 134/79; PULSE 76; RESP 18; TEMP 98.5; O2SAT 99
[2025-02-19] MEDS: TRIAMCINOLONE 0.1% OINTMENT 15 GM TUBE TP SCH (12:07)
[2025-02-19 16:00] VITALS: BP 135/78; PULSE 76; RESP 16; TEMP 98.6; O2SAT 100
[2025-02-19 20:00] VITALS: BP 124/76; PULSE 78; RESP 18; TEMP 98.4; O2SAT 98
[2025-02-20] VITALS: BP 134/72; PULSE 75; RESP 18; TEMP 98.3; O2SAT 98
[2025-02-20 04:00] VITALS: BP 124/88; PULSE 67; RESP 18; TEMP 98.5; O2SAT 98
[2025-02-20 10:33] VITALS: BP 110/82; PULSE 77; RESP 18; TEMP 98.7; O2SAT 100
[2025-02-20 10:46] VITALS: BP 110/82; PULSE 77; RESP 18; TEMP 98.7; O2SAT 100
== END 2025-02-20 12:35 | disposition home or self-care (01) | DRG 727 ==
LOC: ER 18:43 → ERHOLD 22:22 → MED/SURG3 02-16 01:30 → OBSVTOIN 02-17 08:58
PROVIDERS: ADMIT Family Medicine; ATTEND Family Medicine
DX: N41.0 Acute prostatitis (principal); G93.41 Metabolic encephalopathy; N39.0 Urinary tract infection, site not specified; D68.9 Coagulation defect, unspecified; E87.1 Hypo-osmolality and hyponatremia; R65.10 Systemic inflammatory response syndrome (SIRS) of non-infectious origin without acute organ dysfunction; E80.6 Other disorders of bilirubin metabolism; Q62.5 Duplication of ureter; E27.8 Other specified disorders of adrenal gland; D64.9 Anemia, unspecified; R41.0 Disorientation, unspecified; E66.9 Obesity, unspecified; R31.0 Gross hematuria; N20.0 Calculus of kidney; D69.6 Thrombocytopenia, unspecified; N40.1 Benign prostatic hyperplasia with lower urinary tract symptoms; R35.0 Frequency of micturition; K80.20 Calculus of gallbladder without cholecystitis without obstruction; N32.81 Overactive bladder; N39.41 Urge incontinence; B96.20 Unspecified Escherichia coli [E. coli] as the cause of diseases classified elsewhere; Z88.5 Allergy status to narcotic agent; Z86.718 Personal history of other venous thrombosis and embolism; Z79.01 Long term (current) use of anticoagulants; Z85.89 Personal history of malignant neoplasm of other organs and systems; Z92.3 Personal history of irradiation; Z68.39 Body mass index [BMI] 39.0-39.9, adult
CPT/HCPCS: 36415; 74176; 74177; 80053; 81001; 82248; 83605; 84155; 85025; 85610; 85730; 87040; 87086; 87186; 87324; 87449; 93005; 99284; G0378; J0696; J7030; J7050; Q9967